=== PATIENT | female | born 1980 | race Two or more races ===

== ENCOUNTER 2023-08-09 09:14 | Outpatient (CLI) | payer OTHER ==
[~2023-08-09 09:14] MED LIST: PRENA1 CHEW TA1.4 MG PO
== END 2023-08-09 09:34 | disposition home or self-care (01) ==
LOC: RAD 09:14
PROVIDERS: ATTEND Obstetrics & Gynecology Reproductive Endocrinology
DX: N93.0 Postcoital and contact bleeding (principal)

== ENCOUNTER → 2024-11-14 10:00 | Outpatient (CLI) | payer OTHER ==
[2024-11-14 12:40] LABS: TSH < 0.005 uIU/mL (0.358-3.74)
== END | disposition home or self-care (01) ==
LOC: LAB 10:00
DX: E03.9 Hypothyroidism, unspecified (principal); Z31.41 Encounter for fertility testing

== ENCOUNTER 2024-12-05 06:35 | Outpatient (CLI) | payer OTHER ==
[2024-12-05 07:47] LABS: HEMATOCRIT 36.3 % (36.0-45.00); HEMOGLOBIN 12.6 g/dL (12.0-15.00); MEAN CELL VOLUME 89.8 fL (80.00-100.00); MEAN CORPUSCULAR HEMOGLOBIN 31.1 pg (27.00-32.0); MEAN CORPUSCULAR HGB CONC 34.7 g/dl (32.0-36.0); PLATELET COUNT 283 K/uL (150-450); RED BLOOD COUNT 4.04 M/uL (4.00-6.00); RED CELL DISTRIBUTION WIDTH 12.5 % (11.5-14.5)
[2024-12-06 09:07] LABS: HEPATITIS C VIRUS ANTIBODY Non Reactive (Non Reactive)
[2024-12-06 11:11] LABS: hgb a 97.3 % (96.4-98.8); hgb a2 2.7 % (1.8-3.2); hgb f 0 % (0.0-2.0); hgb s 0 % (0.0)
[2024-12-06 13:06] LABS: RUBELLA IGG 1.96 index (Immune >0.99); VARICELLA ZOSTER VIRUS IGG Reactive (Non Reactive)
[2024-12-06 15:26] LABS: RAPID PLASMA REAGIN NONREACTIVE BY RPR (NONREACTIVE)
[2024-12-06 23:06] LABS: chla t Negative (Negative); neiss Negative (Negative)
== END 2024-12-05 06:42 | disposition home or self-care (01) ==
LOC: LAB 06:35
PROVIDERS: ATTEND Obstetrics & Gynecology Maternal & Fetal Medicine
DX: Z34.81 Encounter for supervision of other normal pregnancy, first trimester (principal); E03.9 Hypothyroidism, unspecified; N30.00 Acute cystitis without hematuria

== ENCOUNTER 2024-12-12 15:13 | Outpatient (CLI) | payer OTHER | END 2024-12-12 15:17 | disposition home or self-care (01) | LOC: SONOGRAMA 15:13 | PROVIDERS: ATTEND Obstetrics & Gynecology Maternal & Fetal Medicine | DX: E03.9 Hypothyroidism, unspecified (principal) ==

== ENCOUNTER 2025-04-07 16:34 | Outpatient (CLI) | payer OTHER ==
[~2025-04-07] VITALS: Ht 149.9 cm; Wt 54.4 kg
[2025-04-07 16:16] VITALS: BP 91/49
[2025-04-07] MEDS ORDERED: PRENATAL CAPLE1 EAC1 PO (16:37)
[2025-04-07] MEDS ORDERED: CHILDREN'S ASPI81 MG PO (16:37)
[2025-04-07 20:28] VITALS: BP 99/55
[2025-04-07 23:08] VITALS: BP 94/51
[2025-04-08 04:05] VITALS: BP 92/54
[2025-04-08 07:06] VITALS: BP 91/52
[2025-04-08 10:51] VITALS: BP 93/63
[2025-04-08 12:05] VITALS: BP 93/53
== END 2025-04-08 12:30 | disposition home or self-care (01) ==
LOC: OBS/DEL 16:34
PROVIDERS: ATTEND Obstetrics & Gynecology Gynecology
DX: O26.893 Other specified pregnancy related conditions, third trimester (principal); T14.90XA Injury, unspecified, initial encounter; V49.9XXA Car occupant (driver) (passenger) injured in unspecified traffic accident, initial encounter; M54.9 Dorsalgia, unspecified; R10.2 Pelvic and perineal pain; Z3A.29 29 weeks gestation of pregnancy

== ENCOUNTER → 2025-04-30 13:13 | Outpatient (CLI) | payer OTHER ==
[~2025-04-30 13:13] MED LIST changes: +CHILDREN'S ASPI81 MG PO; +PRENATAL CAPLE1 EAC1 PO
== END | disposition home or self-care (01) ==
LOC: NST 13:13
PROVIDERS: ATTEND Obstetrics & Gynecology
DX: Z34.83 Encounter for supervision of other normal pregnancy, third trimester (principal)

== ENCOUNTER 2025-05-20 11:14 | Outpatient (CLI) | payer OTHER | END 2025-05-20 13:10 | disposition home or self-care (01) | LOC: NST 11:14 | PROVIDERS: ATTEND Obstetrics & Gynecology | DX: Z34.83 Encounter for supervision of other normal pregnancy, third trimester (principal) ==

== ENCOUNTER 2025-05-21 10:23 | Outpatient (CLI) | payer OTHER ==
[2025-05-21 11:15] LABS: BASO % 0.3 % (0.1-1.2); EOS # 0.06 (0.04-0.54); EOS % 0.7 % (0.7-7.0); LYMPH # 1.32 (1.18-3.74); LYMPH % 14.3 % (19.3-53.1); MEAN PLATELET VOLUME 9.40 fl (9.4-12.4); MONO # 0.62 (0.24-0.82); MONO % 6.7 % (4.7-12.5); NEUT # 7.11 (1.56-6.13); NEUT % 77.1 % (34.0-71.1); RED CELL DISTRIBUTION WIDTH 13.5 % (11.6-14.4)
== END 2025-05-21 10:27 | disposition home or self-care (01) ==
LOC: LAB 10:23
PROVIDERS: ATTEND Obstetrics & Gynecology Maternal & Fetal Medicine
DX: U07.1 COVID-19 (principal); Z34.83 Encounter for supervision of other normal pregnancy, third trimester; Z20.828 Contact with and (suspected) exposure to other viral communicable diseases

== ENCOUNTER 2025-06-07 12:04 | Outpatient (CLI) | payer OTHER | END 2025-06-07 12:47 | disposition home or self-care (01) | LOC: NST 12:04 | PROVIDERS: ATTEND Obstetrics & Gynecology Gynecology | DX: Z34.83 Encounter for supervision of other normal pregnancy, third trimester (principal) ==

== ENCOUNTER 2025-06-11 13:15 | Inpatient (IN) | payer OTHER ==
[~2025-06-11] VITALS: Ht 149.9 cm; Wt 61.2 kg
[2025-06-17] VITALS (8 sets, daily range): BP systolic 70–119; BP diastolic 38–99
[2025-06-17] MEDS ORDERED: AMPICILLIN SODIUM 2,000 MG VIAL ONE (10:24)
[2025-06-17] MEDS ORDERED: ACYCLOVIR 400 MG TABLET PO SCH (10:30)
[2025-06-17] MEDS ORDERED: OXYTOCIN 500 ML IV ONE (10:30)
[2025-06-17] MEDS ORDERED: RINGERS SOLUTION,LACTATED 1,000 ML IV SCH (11:00)
[2025-06-17] MEDS ORDERED: AMPICILLIN SODIUM 2,000 MG VIAL IV ONE (11:00)
[2025-06-17 11:29] LABS: BASO % 0.4 % (0.1-1.2); EOS # 0.02 (0.04-0.54); EOS % 0.2 % (0.7-7.0); LYMPH # 1.34 (1.18-3.74); LYMPH % 12.5 % (19.3-53.1); MEAN PLATELET VOLUME 9.50 fl (9.4-12.4); MONO # 0.54 (0.24-0.82); MONO % 5.0 % (4.7-12.5); NEUT # 8.70 (1.56-6.13); NEUT % 81.3 % (34.0-71.1); RED CELL DISTRIBUTION WIDTH 13.4 % (11.6-14.4)
[2025-06-17 12:01] LABS: INR < 0.93
[2025-06-17 12:21] LABS: ALT/SGPT 27.0 U/L (12-78); AST/SGOT 20.0 U/L (15-37); BILIRUBIN TOTAL 0.25 mg/dL (0.3-1.2); BUN CREA RATIO 19.0 (7.0-25.0); CREATININE SERUM 0.43 mg/dL (0.55-1.02); GFR 158.79; GLOBULINA 3.4 G/DL (2.4-3.5); GLUCOSE FASTING 68.0 mg/dL (65-100); OSMOLALITY SERUM 276.0 MOSM/KG (275-295)
[2025-06-17] MEDS ORDERED: ERYTHROMYCIN BASE OPHT 1GM EACH TUBE OP ONE (12:45)
[2025-06-17] MEDS ORDERED: OXYTOCIN 20 UNITS/1000ML RL PIGGYBAG IV ONE (12:45)
[2025-06-17] MEDS ORDERED: LIDOCAINE HCL 1% 10ML VIAL ONE (12:46)
[2025-06-17] MEDS ORDERED: CHLORHEXIDINE GLUCONATE 120 ML BOTTLE TOP ONE (12:46)
[2025-06-17] MEDS ORDERED: AMPICILLIN SODIUM 1,000 MG VIAL IV SCH (13:00)
[2025-06-17] MEDS ORDERED: METHYLERGONOVINE MALEATE 0.2 MG/ML AMPUL ONE (14:24)
[2025-06-17] MEDS ORDERED: OXYTOCIN 1,000 ML IV SCH (14:45)
[2025-06-17] MEDS ORDERED: CHLORHEXIDINE GLUCONATE 120 ML BOTTLE TOP SCH (14:45)
[2025-06-18 00:02] VITALS: BP 105/64
[2025-06-18 00:05] VITALS: BP 105/64
[2025-06-18 06:20] LABS: BASO % 0.1 % (0.1-1.2); EOS # 0.01 (0.04-0.54); EOS % 0.1 % (0.7-7.0); LYMPH # 1.69 (1.18-3.74); LYMPH % 11.4 % (19.3-53.1); MEAN PLATELET VOLUME 9.60 fl (9.4-12.4); MONO # 1.24 (0.24-0.82); MONO % 8.3 % (4.7-12.5); NEUT # 11.86 (1.56-6.13); NEUT % 79.8 % (34.0-71.1); RED CELL DISTRIBUTION WIDTH 13.2 % (11.6-14.4)
[2025-06-18 07:53] LABS: BASO % 0.2 % (0.1-1.2); EOS # 0.01 (0.04-0.54); EOS % 0.1 % (0.7-7.0); LYMPH # 1.28 (1.18-3.74); LYMPH % 9.1 % (19.3-53.1); MEAN PLATELET VOLUME 9.50 fl (9.4-12.4); MONO # 0.94 (0.24-0.82); MONO % 6.7 % (4.7-12.5); NEUT # 11.68 (1.56-6.13); NEUT % 83.5 % (34.0-71.1); RED CELL DISTRIBUTION WIDTH 13.4 % (11.6-14.4)
[2025-06-18 08:23] VITALS: BP 90/53
[2025-06-18 17:02] VITALS: BP 100/63
[2025-06-19 01:03] VITALS: BP 99/61
[2025-06-19 03:00] VITALS: BP 114/70
[2025-06-19 08:00] VITALS: BP 108/69
[2025-06-19 13:46] LABS: BASO % 0.4 % (0.1-1.2); EOS # 0.06 (0.04-0.54); EOS % 0.5 % (0.7-7.0); LYMPH # 2.26 (1.18-3.74); LYMPH % 18.9 % (19.3-53.1); MEAN PLATELET VOLUME 9.10 fl (9.4-12.4); MONO # 0.67 (0.24-0.82); MONO % 5.6 % (4.7-12.5); NEUT # 8.80 (1.56-6.13); NEUT % 73.6 % (34.0-71.1)
[2025-06-19 13:52] LABS: RED CELL DISTRIBUTION WIDTH 16.4 % (11.6-14.4)
[2025-06-19 14:06] LABS: INR < 0.93
[2025-06-19 16:00] VITALS: BP 134/76
== END 2025-06-19 18:27 | disposition home or self-care (01) | DRG 806 ==
LOC: LDR 06-17 09:11 → OB/GYN 06-17 17:11
PROVIDERS: Obstetrics & Gynecology; Obstetrics & Gynecology Gynecology; ADMIT Obstetrics & Gynecology Maternal & Fetal Medicine; ATTEND Obstetrics & Gynecology Maternal & Fetal Medicine
PROC: 10E0XZZ Delivery of Products of Conception, External Approach (ICD-10-PCS; principal; 2025-06-17)
PROC: 0KQM0ZZ Repair Perineum Muscle, Open Approach (ICD-10-PCS; 2025-06-17)
PROC: 4A1HXCZ Monitoring of Products of Conception, Cardiac Rate, External Approach (ICD-10-PCS; 2025-06-17)
PROC: 30233N1 Transfusion of Nonautologous Red Blood Cells into Peripheral Vein, Percutaneous Approach (ICD-10-PCS; 2025-06-18)
DX: O70.1 Second degree perineal laceration during delivery (principal); D62 Acute posthemorrhagic anemia; O99.02 Anemia complicating childbirth; Z37.0 Single live birth; Z3A.39 39 weeks gestation of pregnancy

== ENCOUNTER 2025-06-14 09:24 | Outpatient (CLI) | payer OTHER | END 2025-06-14 10:42 | disposition home or self-care (01) | LOC: NST 09:24 | PROVIDERS: ATTEND Obstetrics & Gynecology Maternal & Fetal Medicine | DX: Z34.83 Encounter for supervision of other normal pregnancy, third trimester (principal) ==

== ENCOUNTER 2025-06-20 03:41 | Emergency (ER) | payer OTHER ==
[~2025-06-20] VITALS: Ht 124.5 cm; Wt 63.0 kg
[2025-06-20 06:13] LABS: URINE APPEARANCE Clear; URINE BILIRRUBIN Negative (NEGATIVE); URINE BLOOD Large; URINE COLOR Yellow; URINE GLUCOSE Negative (NEGATIVE); URINE KETONE Negative (NEGATIVE); URINE LEUKOCYTE Moderate; URINE NITRATE Negative; URINE PROTEIN Negative (NEGATIVE); URINE UROBILINOGEN 0.2 E.U./dl
[2025-06-20 06:18] LABS: URINE BACTERIA 42.0 uL (0.0-1933); URINE EPITHELIAL CELLS 21.9 uL (0.0-38.8); URINE RBC 77.5 uL (0.0-20.8); URINE WBC 63.4 uL (0.0-23.2)
[2025-06-20 06:28] LABS: BASO % 0.5 % (0.1-1.2); EOS # 0.10 (0.04-0.54); EOS % 0.9 % (0.7-7.0); LYMPH # 1.77 (1.18-3.74); LYMPH % 15.5 % (19.3-53.1); MEAN PLATELET VOLUME 9.30 fl (9.4-12.4); MONO # 0.68 (0.24-0.82); MONO % 5.9 % (4.7-12.5); NEUT # 8.69 (1.56-6.13); NEUT % 76.1 % (34.0-71.1); RED CELL DISTRIBUTION WIDTH 15.7 % (11.6-14.4)
[2025-06-20 06:33] LABS: URINE CAST 0.00 uL (0.0-1.40)
[2025-06-20 06:43] LABS: ALT/SGPT 61.0 U/L (12-78); AST/SGOT 55.0 U/L (15-37); BILIRUBIN TOTAL 0.29 mg/dL (0.3-1.2); BUN CREA RATIO 24.0 (7.0-25.0); CREATININE SERUM 0.55 mg/dL (0.55-1.02); GFR 119.53; GLOBULINA 3.4 G/DL (2.4-3.5); GLUCOSE FASTING 76.0 mg/dL (65-100); OSMOLALITY SERUM 288.0 MOSM/KG (275-295)
== END 2025-06-20 08:00 ==
LOC: ER 03:42
PROVIDERS: General Practice
DX: O90.89 Other complications of the puerperium, not elsewhere classified (principal); R06.02 Shortness of breath

== ENCOUNTER 2025-08-05 09:45 | Outpatient (CLI) | payer OTHER | END 2025-08-05 09:53 | disposition home or self-care (01) | LOC: MAMO-SONO 09:45 | PROVIDERS: ATTEND Obstetrics & Gynecology | DX: N63.11 Unspecified lump in the right breast, upper outer quadrant (principal); N63.12 Unspecified lump in the right breast, upper inner quadrant ==